=== PATIENT | male | born 1930 | race Caucasian/White ===

== ENCOUNTER → 2018-10-08 | Outpatient (CLI) | payer MEDICARE ==
[~2018-10-08] MED LIST: IOPAMIDOL 370 MG/ML 200 ML INFUS..BTL INJ ONE; SODIUM CHLORIDE 0.9% 100 ML 100 ML ONE; SODIUM CHLORIDE 0.9% 500ML 500 ML ONE
[2018-10-08 15:18] LABS: CREATININE, SERUM 1.21 mg/dL (0.72-1.25)
--- NOTE | 2018-10-08 16:52 | Diagnostic Imaging Report ---
ADDENDUM #1 Technique: Images were reviewed in multiplanar and 3-dimensional format. I have reviewed the images and agree with findings in the preliminary report. Signed by: Dr. Kaila Bryant M.D. on 10/08/2018 9:52 PM ORIGINAL REPORT Exam: Neck CTA History: Carotid stenosis Comparison studies:None Technique: Axial images were obtained from the thoracic inlet. Coronal and sagittal images reconstructed from the axial data. Dose modulation, iterative reconstruction, and/or weight based adjustment of the mA/kV was utilized to reduce the radiation dose to as low as reasonably achievable. Intravenous contrast: 100 cc of Isovue-370. Findings: Aortic arch and major vessels: Patent. Minimal nonstenotic calcified atherosclerosis. Common carotid arteries: Patent no abnormalities. Right internal carotid artery: Eccentric calcific atheromatous plaques in the proximal right ICA without significant stenosis. Left internal carotid artery: Near-total occlusion of the left ICA approximately 1 cm superior from the bifurcation (99% stenosis) best visualized on sagittal series 300, image 129; axial series 301, image 191. Right vertebral artery: Patent. No abnormalities. Left vertebral artery: Patent. No abnormalities. Visualized intracranial arteries: Diminutive posterior communicating arteries. Anterior communicating artery is present and patent. Atherosclerosis in the carotid siphons results in likely mild (less than 50%) bilateral ICA stenosis. There is mild focal atherosclerotic narrowing of the left V4 vertebral artery. There is focal narrowing of the right P1 segment likely due to atherosclerosis (series 301, image 277). Multifocal narrowing of the left P2 segment. Osseous structures: Advanced multilevel disc space loss in the cervical spine from C3-4 through C7-T1 with prominent calcified disc bulge at C4-5 resulting in canal stenosis. IMPRESSION: 1. Near total occlusion of the proximal left ICA (99% stenosis) due to noncalcified plaque. 2. Mild eccentric calcified atheromatous plaques in the right ICA without significant stenosis. 3. Multifocal intracranial arterial narrowing of the visualized arteries, mostly in the posterior circulation, likely due to atheromatous plaques. Signed by: Blake Barth MD on 10/08/2018 4:49 PM
== END ==
LOC: CT 14:13
PROVIDERS: ATTEND Internal Medicine Cardiovascular Disease
DX: I65.22 Occlusion and stenosis of left carotid artery (principal)
CPT/HCPCS: 36415; 70498; 82565; 84520; 96360; J7040; Q9967

== ENCOUNTER 2018-10-15 10:15 | Inpatient (IN) | payer MEDICARE ==
[2018-10-12 11:26] LABS: BASOPHILS % 0.3 % (0.0-1.0); EOSINOPHILS # (AUTO) 0.1 (0.0-0.4); EOSINOPHILS % 2.2 % (0.0-6.0); HEMATOCRIT 44.2 % (38.2-49.6); HEMOGLOBIN 15.5 g/dL (14.0-18.0); LYMPHOCYTES # (AUTO) 1.1 (1.0-3.2); LYMPHOCYTES % 17.3 % (18.0-39.1); MEAN CORPUSCULAR HEMOGLOBIN 32.4 pg (28-32); MEAN CORPUSCULAR HGB CONC 35.1 g/dL (31-35); MEAN CORPUSCULAR VOLUME 92.5 fL (81-99); MONOCYTES # (AUTO) 0.7 (0.2-0.8); MONOCYTES % 11.9 % (4.4-11.3); NEUTROPHILS # (AUTO) 4.2 (2.1-6.9); NEUTROPHILS % 67.7 % (38.7-80.0); PLATELET COUNT 211 x10e3/uL (140-360); RED BLOOD COUNT 4.78 x10e6/uL (4.3-5.7); RED CELL DISTRIBUTION WIDTH 13.2 % (11.7-14.4)
[2018-10-12 11:41] LABS: INR 0.97; PROTHROMBIN TIME 13.4 seconds (11.9-14.5)
[2018-10-12 11:42] LABS: PARTIAL THROMBOPLASTIN TIME 27.1 seconds (23.8-35.5)
[2018-10-12 11:46] LABS: ANION GAP 12.9 mmol/L (8-16); CALCIUM 9.3 mg/dL (8.4-10.2); CREATININE, SERUM 1.15 mg/dL (0.72-1.25); POTASSIUM 3.9 mmol/L (3.5-5.1)
--- NOTE | 2018-10-12 12:07 | Diagnostic Imaging Report ---
EXAMINATION: CHEST 2 VIEWS INDICATION: Preop for surgery. Carotid stenosis. ^PRE ADMIT ^[id number] ^1127 COMPARISON: None FINDINGS: TUBES and LINES: None. LUNGS: Lungs are well inflated. Lungs are clear. There is no evidence of pneumonia or pulmonary edema. PLEURA: No pleural effusion or pneumothorax. HEART AND MEDIASTINUM: The cardiomediastinal silhouette is unremarkable. BONES AND SOFT TISSUES: No acute osseous lesion. Soft tissues are unremarkable. UPPER ABDOMEN: No free air under the diaphragm. IMPRESSION: No acute thoracic abnormality. Signed by: Dr. Fawad Johnson M.D. on 10/12/2018 12:04 PM
[2018-10-15] VITALS (10 sets, daily range): BP systolic 105–166; BP diastolic 54–85
[~2018-10-15] VITALS: Ht 167.6 cm; Wt 79.0 kg
[~2018-10-15 10:15] MED LIST changes: +ALFUZOSIN HCL10 MG; +BACITRACIN ZINC 15 GM OINT ONE; +DIOVAN160 MG PO; +FENOFIBRATE134 MG; +HEPARIN SOD (PORCINE) 1000 UNIT/ML 30ML ONE; -IOPAMIDOL 370 MG/ML 200 ML INFUS..BTL INJ ONE; +LIDOCAINE HCL 1% 2 ML AMP ONE; +PROTAMINE SULFATE 10 MG/ML 5 ML VIAL ONE; -SODIUM CHLORIDE 0.9% 100 ML 100 ML ONE; +THROMBIN FOR SOLN 5,000 UNIT VIAL ONE; +WELCHOL625 MG PO; +XARELTO20 MG
--- OUTSIDE RECORDS SUMMARY | 2018-10-15 10:17 | XMS REPORT ---
Author Author [facility] Address Unknown Phone Unavailable Care Team Providers Care Bone Crusher Name Role Phone IFEOMA KIDD Unavailable Unavailable HEENA REYEZ Unavailable Unavailable Payers Payer Name Policy Type Policy Number Effective Date Expiration Date Problems This patient has no known problems. Allergies, Adverse Reactions, Alerts Allergy Name Allergy Type Status Severity Reaction(s) Onset Date Inactive Date Treating Clinician Comments No Known Allergies DA Active U 2018-04-21 00:00:00 No Known Allergies DA Active U 2011-10-14 00:00:00 Medications This patient has no known medications. Results Test Description Test Time Test Comments Text Results Atomic Results Result Comments CHEST 2 VIEWS 2018-10-12 12:03:00 [place] [id number] Patient Name: FRED GRIJALVA MR #: [id number] : 1930 Age/Sex: 88/M Req #: [id number] Adm Physician: Ordered by: IFEOMA KIDD MD Report #: [id number] Location: OR Room/Bed: Procedure: [id number] DX/CHEST 2 VIEWS Exam Date: 10/12/18 Exam Time: 1126 REPORT STATUS: Signed EXAMINATION: CHEST 2 VIEWS INDICATION: Preop f or surgery. Carotid stenosis. PRE ADMIT [id number] COMPARISON: None FINDINGS: TUBES and LINES: None. LUNGS: Lungs are well inflated. Lungs are clear. There is no evidence of pneumonia or pulmonary edema. PLEURA: No pleural effusion or pneumothorax. HEART AND MEDIASTINUM: The cardiomediastinal silhouette is unremarkable. BONES AND SOFT TISSUES: No acute osseous lesion. Soft tissues are unremarkable. UPPER ABDOMEN: No free air under the diaphragm. IMPRESSION: No acute thoracic abnormality. Signed by: Dr. Fawad Johnson M.D. on 10/12/2018 12:04 PM Dictated By: FAWAD JOHNSON MD, MD 03 Transcribed By: AMNA on 10/12/18 120 COPY TO: IFEOMA KIDD MD CTA NECK 2018-10-08 16:36:00 [place] [address] Patient Name: FRED GRIJALVA MR #: [id number] : 1930 Age/Sex: 88/M Req #: [id number] Adm Physician: Ordered by: HEENA REYEZ MD Report #: [id number] Location: CT Room/Bed: Procedure: [id number] CT/CTA NECK Exam Date: 10/08/18 Exam Time: 1599 REPORT STATUS: Signed ADDENDUM #1 Technique: Images were reviewe d in multiplanar and 3-dimensional format. I have reviewed the images and agree with findings in the preliminary report. Signed by: Dr. Kaila Bryant M.D. on 10/08/2018 9:52 PM ORIGINAL REPORT Exam: Neck CTA History: Carotid stenosis Comparison studies:None Technique: Axial images were obtained from the thoracic inlet. Coronal and sagittal images reconstructed from the axial data. Dose modulation, iterative reconstruction, and/or weight based adjustment of the mA/kV was utilized to reduce the radiation dose to as low as reasonably achievable. Intravenous contrast: 100 cc of Isovue-370. Findings: Aortic arch and major vessels: Patent. Minimal nonstenotic calcified atherosclerosis. Common carotid arteries: Patent no abnormalities. Right internal carotid artery: Eccentric calcific atheromatous plaques in the proximal right ICA without significant stenosis. Left internal carotid artery: Near-total occlusion of the left ICA approximately 1 cm superior from the bifurcation (99% stenosis) best visualized on sagittal series 300, image 129; axial series 301, image 191. Right vertebral artery: Patent. No abnormalities. Left vertebral artery: Patent. No abnormalities. Visualized intracranial arteries: Diminutive posterior communicating arteries. Anterior communicating artery is present and patent. Atherosclerosis in the carotid siphons results in likely mild (less than 50%) bilateral ICA stenosis. There is mild focal atherosclerotic narrowing of the left V4 vertebral artery. There is focal narrowing of the right P1 segment likely due to atherosclerosis (series 301, image 277). Multifocal narrowing of the left P2 segment. Osseous structures: Advanced multilevel disc space loss in the cervical spine from C3- 4 through C7-T1 with prominent calcified disc bulge at C4-5 resulting in canal stenosis. IMPRESSION: 1. Near total occlusion of the proximal left ICA (99% stenosis) due to noncalcified plaque. 2. Mild eccentric calcified atheromatous plaques in the right ICA without significant stenosis. 3. Multifocal intracranial arterial narrowing of the visualized arteries, mostly in the posterior circulation, likely due to atheromatous plaques. Signed by: Blake Barth MD on 10/08/2018 4:49 PM Dictated By: AIMEE BARTH MD [id number] Transcribed By: AMNA on 10/08/18 5921 COPY TO: HEENA REYEZ MD
[2018-10-15] MEDS ORDERED: HEPARIN SOD/SOD CHLORIDE 1,000 ML ONE (11:23)
[2018-10-15] MEDS ORDERED: DEXMEDETOMIDINE HCL 2 ML ONE (19:05)
--- NOTE | 2018-10-15 19:10 | NUR ---
Report received. To OR.
[2018-10-15] MEDS ORDERED: NOREPINEPHRINE INJ 4 MG/4 ML ONE (20:24)
[2018-10-15] MEDS ORDERED: NICARDIPINE HCL 25 MG/10 ML ONE (20:24)
[2018-10-15] MEDS ORDERED: SODIUM CHLORIDE 0.9% INJ 100 ML MINIBAG PLUS ONE (20:24)
[2018-10-15] MEDS ORDERED: MUPIROCIN 2% OINT 22 GM TUBE ONE (21:27)
--- NOTE | 2018-10-15 21:44 | NUR ---
Received from OR. Placed on NBP, pulse ox & EKG for monitoring. Art line in place to right radial. Zeroed.
[2018-10-15] MEDS ORDERED: ONDANSETRON HCL 4 MG ORAL DISINTEGRATING TAB PO PRN (22:45)
[2018-10-15] MEDS ORDERED: LABETALOL HCL 5 MG/ML 20ML VIAL IV PRN (22:45)
[2018-10-15] MEDS ORDERED: HYDROCODONE/APAP 5MG-325MG TAB PO PRN (22:45)
[2018-10-15] MEDS ORDERED: CEFAZOLIN SOD 1 GM/NS 50ML 50 ML IV SCH (22:45)
[2018-10-15] MEDS ORDERED: MORPHINE SULFATE INJ 4 MG/ML INJ 1ML IV PRN (22:45)
[2018-10-15] MEDS: ENOXAPARIN SOD INJ 40 MG/0.4 ML SYR SC SCH (23:06)
[2018-10-15] MEDS ORDERED: MORPHINE SULFATE INJ 4 MG/ML INJ 1ML ONE (23:10)
[2018-10-15 23:24] LABS: BASOPHILS % 0.3 % (0.0-1.0); EOSINOPHILS # (AUTO) 0.1 (0.0-0.4); EOSINOPHILS % 0.3 % (0.0-6.0); HEMATOCRIT 40.4 % (38.2-49.6); HEMOGLOBIN 14.4 g/dL (14.0-18.0); LYMPHOCYTES # (AUTO) 0.5 (1.0-3.2); LYMPHOCYTES % 3.7 % (18.0-39.1); MEAN CORPUSCULAR HEMOGLOBIN 32.8 pg (28-32); MEAN CORPUSCULAR HGB CONC 35.6 g/dL (31-35); MONOCYTES # (AUTO) 0.4 (0.2-0.8); MONOCYTES % 2.7 % (4.4-11.3); NEUTROPHILS # (AUTO) 13.3 (2.1-6.9); NEUTROPHILS % 92.2 % (38.7-80.0); PLATELET COUNT 225 x10e3/uL (140-360); RED BLOOD COUNT 4.39 x10e6/uL (4.3-5.7); RED CELL DISTRIBUTION WIDTH 13.1 % (11.7-14.4)
--- NOTE | 2018-10-15 23:24 | Consultation ---
DATE OF CONSULTATION: Critical Care Consultation. CHIEF COMPLAINT: Carotid atherosclerosis. REFERRING PHYSICIAN: Juan Alberto Davies MD. HISTORY OF PRESENT ILLNESS: The patient is an 88-year-old man. He has a history of hypertension and atrial fibrillation. He recently had carotid vascular studies that showed carotid artery stenosis. He is awaiting a carotid endarterectomy. PAST MEDICAL HISTORY: 1. Hypertension. 2. Atrial fibrillation. 3. Coronary artery disease. PAST SURGERY HISTORY: 1. Cholecystectomy. 2. Left carotid endarterectomy. 3. Cardiac catheterization. SOCIAL HISTORY: The patient is not an active smoker or drinker. FAMILY HISTORY: Family history is noncontributory. ALLERGIES: THE PATIENT IS ALLERGIC TO IODINE. REVIEW OF SYSTEMS: There are no fevers. No headache. No neck pain. He does not have chest pain. There is no difficulty breathing. He has no nausea or vomiting. He has no abdominal pain. He has no leg swelling. PHYSICAL EXAMINATION: VITAL SIGNS: The patient is afebrile. The vital signs are stable. HEENT: Shows no facial swelling or erythema. CARDIAC: Reveals regular rate and rhythm with normal S1, S2. LUNGS: Auscultation of lungs reveals clear breath sounds bilaterally. There is no wheezing. ABDOMEN: Soft, nontender. There is no rebound or guarding. EXTREMITIES: Show no leg edema or calf tenderness. There is no cyanosis or clubbing. SKIN: Shows no rashes. NEUROLOGICAL: Shows no focal abnormalities. IMPRESSION: 1. Carotid artery disease. 2. Atrial fibrillation. 3. Hypertension. 4. Coronary artery disease. PLAN: 1. The patient is awaiting right carotid endarterectomy. 2. Resume antihypertensive regimen and medications for atrial fibrillation postoperatively. Rodrigo Ba MD [facility]/MODL /[id number]
[2018-10-15 23:44] LABS: ANION GAP 13.8 mmol/L (8-16); BLOOD UREA NITROGEN 13 mg/dL (7-26); BUN/CREATININE RATIO 12 (6-25); CALCIUM 8.3 mg/dL (8.4-10.2); CARBON DIOXIDE 20 mmol/L (22-29); CHLORIDE 101 mmol/L (98-107); CREATININE, SERUM 1.11 mg/dL (0.72-1.25); EST GLOMERULAR FILTRATION RATE > 60 ML/MIN (60-); GLUCOSE 159 mg/dL (74-118); POTASSIUM 4.8 mmol/L (3.5-5.1); SODIUM 130 mmol/L (136-145)
[2018-10-16] VITALS (26 sets, daily range): BP systolic 101–181; BP diastolic 53–99
[2018-10-16] MEDS: SODIUM CHLORIDE 0.9% 1000ML 1,000 ML IV SCH ×2 (00:56→08:35)
[2018-10-16] MEDS ORDERED: CEFAZOLIN SOD 1 GM/NS 50ML 50 ML IV ONE (03:27)
[2018-10-16 05:28] LABS: BASOPHILS % 0.2 % (0.0-1.0); HEMATOCRIT 40.1 % (38.2-49.6); HEMOGLOBIN 14.2 g/dL (14.0-18.0); LYMPHOCYTES # (AUTO) 0.5 (1.0-3.2); LYMPHOCYTES % 3.8 % (18.0-39.1); MEAN CORPUSCULAR HEMOGLOBIN 32.6 pg (28-32); MEAN CORPUSCULAR HGB CONC 35.4 g/dL (31-35); MONOCYTES # (AUTO) 0.6 (0.2-0.8); MONOCYTES % 4.1 % (4.4-11.3); NEUTROPHILS # (AUTO) 12.2 (2.1-6.9); NEUTROPHILS % 91.4 % (38.7-80.0); PLATELET COUNT 222 x10e3/uL (140-360); RED BLOOD COUNT 4.36 x10e6/uL (4.3-5.7); RED CELL DISTRIBUTION WIDTH 12.8 % (11.7-14.4)
[2018-10-16 05:36] LABS: ANION GAP 13.4 mmol/L (8-16); BLOOD UREA NITROGEN 13 mg/dL (7-26); BUN/CREATININE RATIO 12 (6-25); CALCIUM 8.3 mg/dL (8.4-10.2); CARBON DIOXIDE 20 mmol/L (22-29); CHLORIDE 99 mmol/L (98-107); CREATININE, SERUM 1.11 mg/dL (0.72-1.25); EST GLOMERULAR FILTRATION RATE > 60 ML/MIN (60-); GLUCOSE 151 mg/dL (74-118); POTASSIUM 4.4 mmol/L (3.5-5.1); SODIUM 128 mmol/L (136-145)
--- NOTE | 2018-10-16 05:42 | Diagnostic Imaging Report ---
Examination: Single AP view of the chest. COMPARISON: None. INDICATION: Postoperative, carotid stenosis DISCUSSION: Lines/tubes: None. Lungs: The lungs are well inflated and clear. No pneumonia or pulmonary edema. Pleura: No pleural effusion or pneumothorax. Heart and mediastinum: Cardiomegaly Bones and soft tissues: No acute bony abnormalities. IMPRESSION: Cardiomegaly without decompensation Signed by: Dr. Antonio Chairez M.D. on 10/16/2018 5:38 AM
[2018-10-16] MEDS ORDERED: CHLORASEPTIC SPRAY 177 ML BTL MM PRN (08:15)
--- NOTE | 2018-10-16 09:17 | Consultation ---
DATE OF CONSULTATION: CHIEF COMPLAINT: The patient is 88-year-old with atrial fibrillation. HISTORY OF PRESENT ILLNESS: The patient is an 88-year-old with chronic atrial fibrillation, who underwent a redo left carotid endarterectomy yesterday without complication. The patient has had no chest pain. No shortness of breath. No dizziness. PAST MEDICAL HISTORY: Significant for: 1. Chronic atrial fibrillation. 2. Carotid artery disease. 3. Hyperlipidemia. 4. Hypertension. MEDICATIONS: At home include; Xarelto, Diovan, and fenofibrate. SOCIAL HISTORY: The patient does not smoke. Does not drink. The patient reports quitting smoking in the 80s. FAMILY HISTORY: Heart disease and diabetes. PHYSICAL EXAMINATION: GENERAL: The patient is a well-developed and well-nourished male in no obvious distress. VITAL SIGNS: Include temperature of 97.3, blood pressure 140/75, and pulse of 80. HEAD, EARS, EYES, NOSE, AND THROAT: The patient had a recent left-sided carotid endarterectomy. CARDIAC: Demonstrated normal S1 and S2 with an irregularly irregular rhythm. CHEST: Demonstrated rhonchi bilaterally. ABDOMEN: Demonstrated good bowel sounds. No tenderness and no masses. EXTREMITIES: There is no clubbing, no cyanosis, no edema. NEUROLOGICAL: The patient is alert and oriented x3. Cranial nerves were intact. Motor strength was intact in all limbs. LABORATORY DATA: The patient's EKG demonstrated atrial fibrillation with nonspecific ST and T-wave changes. IMPRESSION: The patient is 88-year-old with a recent carotid endarterectomy. The patient is recovering without complication. The patient has chronic atrial fibrillation with a ventricular response. The atrial fibrillation is well controlled. The patient will need to resume Xarelto as soon as it is approved by Cardiovascular Surgery. MD WILD Rowland/ANDRES /[id number]
[2018-10-16] MEDS: FENOFIBRATE 145 MG TAB PO SCH (09:55)
[2018-10-16] MEDS: VALSARTAN 160 MG TAB PO SCH ×2 (09:55→17:08)
[2018-10-16] MEDS: ENOXAPARIN SOD INJ 40 MG/0.4 ML SYR SC SCH (09:55)
[2018-10-16] MEDS: COLESEVELAM HCL 625 MG TAB PO SCH (09:55)
--- NOTE | 2018-10-16 14:57 | NUR ---
JULIEN DIOP'Brittni AT THIS TIME Addendum: 10/16/18 at 1458 by Lissy Moore RN PT SITTING UP AT BEDSIDE IN CHAIR
--- NOTE | 2018-10-16 16:44 | Progress Note ---
DATE: Pulmonary Critical Care Progress Note SUBJECTIVE: The patient went for carotid endarterectomy late last night. The patient tolerated the procedure well without any problems. This morning, he has no headache. He has no neurological abnormalities. PHYSICAL EXAMINATION: VITAL SIGNS: The patient is afebrile. The blood pressure is 132/61 and saturation is 97% on room air. The pulse is 68. HEENT: Shows no facial swelling or erythema. The nasal mucosa is normal. The oropharynx is normal. LYMPHATIC: Shows no submandibular, cervical, or supraclavicular adenopathy. CARDIAC: Reveals regular rate and rhythm with normal S1, S2. There are no murmurs or rubs. LUNGS: Auscultation of lungs shows clear breath sounds bilaterally. There is no wheezing. ABDOMEN: Soft, nontender. There is no rebound or guarding. EXTREMITIES: Show no leg edema or calf tenderness. There is no cyanosis or clubbing. LABORATORY DATA: White blood cell count is 13.3 and hemoglobin is 14.2. The platelet count is 222. The sodium is 128 and BUN to creatinine ratio is 13 to 1.11. Other electrolytes are within normal limits. IMPRESSION: 1. Status post carotid endarterectomy. 2. Hypertension. 3. Chronic atrial fibrillation. PLAN: 1. Discontinue Aleman catheter. 2. Remove venous compression devices and ambulate patient as tolerated. 3. Tentative discharge home tomorrow. Rodrigo Ba MD [facility]/MODL /[id number]
[2018-10-16] MEDS ORDERED: FENTANYL CITRATE/PF 100MCG/2 ML INJ ONE (19:23)
[2018-10-16] MEDS ORDERED: MIDAZOLAM HCL 2 MG/2 ML VIAL ONE (19:23)
[2018-10-16] MEDS ORDERED: DEXAMETHASONE SOD PHOS INJ 4 MG/ML VIAL ONE (20:07)
[2018-10-16] MEDS ORDERED: ONDANSETRON HCL INJ 2MG/ML 2ML 2 MG/ML VIAL ONE (20:07)
[2018-10-16] MEDS ORDERED: VASOPRESSIN INJ 20 UNIT/ML VIAL ONE (20:07)
[2018-10-16] MEDS ORDERED: CEFAZOLIN SOD 1 GM VIAL ONE (20:07)
[2018-10-16] MEDS ORDERED: NEOSTIGMINE 5 MG/5ML SYR ONE (20:07)
[2018-10-16] MEDS ORDERED: GLYCOPYRROLATE INJ 1MG/ 5 ML SYR ONE (20:07)
[2018-10-16] MEDS ORDERED: ESMOLOL HCL 100MG/10ML 10 MG/ML VIAL ONE (20:07)
[2018-10-16] MEDS ORDERED: ACETAMINOPHEN 1000 MG/100 ML IV ONE (20:07)
[2018-10-16] MEDS ORDERED: DESFLURANE 240 ML BTL INH ONE (20:07)
[2018-10-16] MEDS ORDERED: PROPOFOL IV EMULSION 10 MG/ML 20 ML VIAL ONE (20:07)
[2018-10-16] MEDS ORDERED: ROCURONIUM BROMIDE 10 MG/ML 5ML VIAL ONE (20:07)
--- NOTE | 2018-10-16 23:00 | NUR ---
Patient had his Aleman catheter removed at around 1400hrs, has been passing urine just fine, states that he usually has frequency in the evening but and retention at times, did a bladder scan 580 mls of urine. Called Dr Ba about the retention
--- NOTE | 2018-10-16 23:40 | NUR ---
Obtained an order for a straight catheter done, 900 mls of urine. Patient relieved and reassured.
[2018-10-17] VITALS (9 sets, daily range): BP systolic 89–158; BP diastolic 48–102
--- NOTE | 2018-10-17 03:18 | NUR ---
Dr Ba, updated on the patients progress, for review before discharge. Patient remains asleep with no complaints, hemodynamically stable
--- NOTE | 2018-10-17 06:14 | Diagnostic Imaging Report ---
Examination: Single AP view of the chest. COMPARISON: October 16, 2018 INDICATION: Postoperative, carotid stenosis DISCUSSION: Lines/tubes: None. Lungs: The lungs are well inflated and clear. No pneumonia or pulmonary edema. Pleura: No pleural effusion or pneumothorax. Heart and mediastinum: Cardiomegaly Bones and soft tissues: No acute bony abnormalities. IMPRESSION: Cardiomegaly without decompensation Signed by: Dr. Antonio Chairez M.D. on 10/17/2018 6:11 AM
[2018-10-17] MEDS ORDERED: TAMSULOSIN HCL 0.4 MG CAP PO SCH ×3 (07:00→21:00)
[2018-10-17] MEDS ORDERED: TAMSULOSIN HCL 0.4 MG CAP PO ONE (07:30)
[2018-10-17] MEDS: VALSARTAN 160 MG TAB PO SCH (09:09)
[2018-10-17] MEDS: COLESEVELAM HCL 625 MG TAB PO SCH (09:09)
[2018-10-17] MEDS: FENOFIBRATE 145 MG TAB PO SCH (09:09)
--- NOTE | 2018-10-17 13:00 | NUR ---
Dr Fisher notified of consult. [address] and 200cc clear yellow urine removed. patient to discharge with pacheco in place and follow up with Dr Fisher after discharge.
[2018-10-17] MEDS ORDERED: TYLENOL WITH C1 EACH PO (13:09)
[2018-10-17] MEDS ORDERED: RIVAROXABAN 20 MG TABLET PO SCH (17:00)
--- NOTE | 2018-10-25 04:38 | Operative Report ---
DATE OF PROCEDURE: 10/15/2018 SURGEON: Juan Alberto Davies MD PRIMER BOXER: Ganga Alba. PREOPERATIVE DIAGNOSIS: Severe and recurrent left carotid stenosis. POSTOPERATIVE DIAGNOSIS: Severe and recurrent left carotid stenosis. TITLE OF OPERATION: Redo left carotid endarterectomy. DESCRIPTION OF PROCEDURE: After the satisfactory accomplishment of general anesthesia, the patient's left neck was prepped and draped in sterile fashion. The old left carotid incision was reopened and carried down through the dense scar tissue and adhesions to expose the old patch and the left common carotid artery. The artery and its patch were carefully dissected free from the surrounding tissues and looped with vessel loops. The dissection was carefully carried distally to expose the internal carotid artery and the external carotid artery and its branches. Care was taken to identify and preserve all nerve structures in the region. Systemic heparin was then given through a central vein canula for the purposes of anticoagulation. The common, external, and internal carotid arteries were briefly crossclamped. A long incision was started in the common carotid artery proximal to the patch and carried through the patch and well up into the distal internal carotid artery. An indwelling shunt was placed in the common carotid artery proximally and the internal carotid artery distally, thereby re-establishing blood flow to the left side of the brain for the remainder of the case. A severely obstructing atherosclerotic plaque was found in the distal portion of the patch and in the carotid bifurcation. All of this material was removed along with the remnants of the old Dacron patch. Once the endarterectomy part of the operation was completed, the surface of the vessel was smoothed and all loose debris was carefully removed. Heparinized saline flushes were routinely employed. A new Dacron patch was brought into the operative field. This patch was anastomosed over the extended arteriotomy incision. This patch closure was performed using running 7-0 Prolene. Prior to completing, the closure of the shunt was removed and the vessel was flushed free from all air and debris. Once the sutures were tied, excellent pulses were located within the patch area and beyond. Protamine was given to counteract the effects of the heparin. All bleeding points were cauterized, ligated, and oversewn. Once the wound had been re-irrigated with antibiotic solution, the wound was closed in layers with interrupted 2-0 Vicryl for the deep tissues and Monocryl subcuticular stitches for the skin. The patient tolerated the procedure well and was returned to the Intensive Care Unit in good condition. MD JAMES Lucas/ANDRES /[id number]
== END 2018-10-17 14:45 | disposition home or self-care (01) | DRG 39 ==
LOC: OR 10:15 → PACU V 15:15 → ICU 15:41 → OBSVTOIN 10-16 11:13
PROVIDERS: ADMIT Thoracic Surgery (Cardiothoracic Vascular Surgery); ATTEND Thoracic Surgery (Cardiothoracic Vascular Surgery)
PROC: 03CJ0Z6 (ICD-10-PCS; principal; 2018-10-16)
PROC: 03CL0ZZ Extirpation of Matter from Left Internal Carotid Artery, Open Approach (ICD-10-PCS; 2018-10-16)
PROC: 03UJ0JZ Supplement Left Common Carotid Artery with Synthetic Substitute, Open Approach (ICD-10-PCS; 2018-10-16)
DX: I65.22 Occlusion and stenosis of left carotid artery (principal); I48.2 Chronic atrial fibrillation; Z79.01 Long term (current) use of anticoagulants; I10 Essential (primary) hypertension; K57.90 Diverticulosis of intestine, part unspecified, without perforation or abscess without bleeding; K21.9 Gastro-esophageal reflux disease without esophagitis; Z72.0 Tobacco use; Z91.041 Radiographic dye allergy status; I25.10 Atherosclerotic heart disease of native coronary artery without angina pectoris; N40.1 Benign prostatic hyperplasia with lower urinary tract symptoms; R33.8 Other retention of urine; E66.9 Obesity, unspecified; Z68.28 Body mass index [BMI] 28.0-28.9, adult
CPT/HCPCS: 36415; 71045; 71046; 80048; 85025; 85610; 85730; 86850; 86900; 86920; 88304; 88311; 93005; C1768; G0378; J0690; J1100; J1644; J1650; J2001; J2250; J2270; J2405; J2720; J7030; J7040

== ENCOUNTER 2018-10-24 16:18 | Emergency (ER) | payer MEDICARE ==
[~2018-10-24] VITALS: Ht 167.6 cm; Wt 78.9 kg
[~2018-10-24 16:18] MED LIST changes: -BACITRACIN ZINC 15 GM OINT ONE; -HEPARIN SOD (PORCINE) 1000 UNIT/ML 30ML ONE; -LIDOCAINE HCL 1% 2 ML AMP ONE; -PROTAMINE SULFATE 10 MG/ML 5 ML VIAL ONE; -SODIUM CHLORIDE 0.9% 500ML 500 ML ONE; -THROMBIN FOR SOLN 5,000 UNIT VIAL ONE; +TYLENOL WITH C1 EACH PO
[2018-10-24 17:45] LABS: BILIRUBIN,URINE NEGATIVE (NEGATIVE); CLARITY,URINE CLEAR (CLEAR); COLOR,URINE YELLOW (YELLOW); KETONES,URINE NEGATIVE (NEGATIVE); LEUKOCYTE ESTERASE ,URINE MODERATE (NEGATIVE); NITRITE,URINE NEGATIVE (NEGATIVE); PROTEIN,URINE DIPSTICK NEGATIVE (NEGATIVE); URINE UROBILINOGEN 0.2 mg/dL (0.2 - 1)
[2018-10-24 18:00] LABS: BACTERIA,URINE MODERATE /HPF
[2018-10-24] MEDS ORDERED: ceftin PO (18:17)
--- NOTE | 2018-10-24 18:29 | NUR ---
PER DR GAVIN INSERT 18 FR COUDE WITH LEG BAG FOR URINARY RETENTION; BLADDER SCANNER SHOWS APPROX 275 CC URINE RETENTION POST VOID IN DIAPER; POST CATHETER INSERTION PT HAS APPROX 220 CC URINE OUTPUT
[2018-10-24 18:33] VITALS: BP 165/97
== END 2018-10-24 18:37 | disposition home or self-care (01) ==
LOC: ER 16:18
DX: R33.9 Retention of urine, unspecified (principal); N30.91 Cystitis, unspecified with hematuria; N40.1 Benign prostatic hyperplasia with lower urinary tract symptoms
CPT/HCPCS: 51700; 81001; 87086; 87186; 99283

== ENCOUNTER 2018-11-10 01:38 | Emergency (ER) | payer MEDICARE ==
[~2018-11-10] VITALS: Ht 167.6 cm; Wt 78.9 kg
[~2018-11-10 01:38] MED LIST changes: +ceftin PO
[2018-11-10] MEDS ORDERED: LIDOCAINE JELLY 2% 10ML URO-JET TOP ONE (01:45)
[2018-11-10 02:19] LABS: CLARITY,URINE CLEAR (CLEAR); COLOR,URINE YELLOW (YELLOW)
[2018-11-10 02:20] LABS: BILIRUBIN,URINE NEGATIVE (NEGATIVE); KETONES,URINE NEGATIVE (NEGATIVE); LEUKOCYTE ESTERASE ,URINE NEGATIVE (NEGATIVE); NITRITE,URINE NEGATIVE (NEGATIVE); PROTEIN,URINE DIPSTICK NEGATIVE (NEGATIVE); URINE UROBILINOGEN 0.2 mg/dL (0.2 - 1)
[2018-11-10 02:55] LABS: BACTERIA,URINE FEW /HPF; EPITHELIAL CELLS,URINE FEW /LPF
== END 2018-11-10 02:56 | disposition home or self-care (01) ==
LOC: ER 01:38
DX: N40.1 Benign prostatic hyperplasia with lower urinary tract symptoms (principal); R33.8 Other retention of urine; Z91.041 Radiographic dye allergy status
CPT/HCPCS: 51700; 81001; 87086; 99283

== ENCOUNTER 2018-11-28 06:58 | Inpatient (IN) | payer MEDICARE ==
[2018-11-26 11:13] LABS: BASOPHILS % 0.4 % (0.0-1.0); EOSINOPHILS # (AUTO) 0.1 (0.0-0.4); EOSINOPHILS % 1.7 % (0.0-6.0); HEMATOCRIT 45.7 % (38.2-49.6); HEMOGLOBIN 16.1 g/dL (14.0-18.0); LYMPHOCYTES # (AUTO) 1.5 (1.0-3.2); LYMPHOCYTES % 21.2 % (18.0-39.1); MEAN CORPUSCULAR HEMOGLOBIN 32.3 pg (28-32); MEAN CORPUSCULAR HGB CONC 35.2 g/dL (31-35); MEAN CORPUSCULAR VOLUME 91.6 fL (81-99); MONOCYTES # (AUTO) 0.8 (0.2-0.8); MONOCYTES % 10.4 % (4.4-11.3); NEUTROPHILS # (AUTO) 4.8 (2.1-6.9); NEUTROPHILS % 65.9 % (38.7-80.0); PLATELET COUNT 255 x10e3/uL (140-360); RED BLOOD COUNT 4.99 x10e6/uL (4.3-5.7); RED CELL DISTRIBUTION WIDTH 13.1 % (11.7-14.4)
[~2018-11-28] VITALS: Ht 167.6 cm; Wt 68.5 kg
[2018-11-28] MEDS ORDERED: CEFTRIAXONE SOD 1 GM/NS 50 ML 50 ML IV ONE (07:12)
[2018-11-28] MEDS ORDERED: GENTAMICIN 80MG/NS 100 ML 100 ML IV ONE (07:12)
[2018-11-28] MEDS ORDERED: AMPICILLIN SOD 1 GM/NS 50ML 50 ML IV PRN (07:30)
[2018-11-28] MEDS ORDERED: BELLADONNA/OPIUM 30 MG SUPP RC ONE (09:06)
[2018-11-28] MEDS ORDERED: IOPAMIDOL 610MG/1ML 300 MG/ML VIAL IV ONE (09:06)
[2018-11-28] MEDS ORDERED: FENTANYL CITRATE/PF 100MCG/2 ML INJ ONE ×2 (11:41→14:27)
[2018-11-28] MEDS ORDERED: BELLADONNA/OPIUM 30 MG SUPP RC PRN (11:45)
[2018-11-28] MEDS ORDERED: MORPHINE SULFATE INJ 4 MG/ML INJ 1ML ONE ×2 (11:57→12:10)
[2018-11-28] MEDS: CEFTRIAXONE SOD 1 GM/NS 50 ML 50 ML IV SCH (12:00)
[2018-11-28] MEDS ORDERED: HYDROMORPHONE 2MG/ML 2 MG/ML ML ONE (12:14)
[2018-11-28 12:41] LABS: BASOPHILS % 0.2 % (0.0-1.0); EOSINOPHILS # (AUTO) 0.1 (0.0-0.4); EOSINOPHILS % 0.7 % (0.0-6.0); HEMATOCRIT 45.6 % (38.2-49.6); HEMOGLOBIN 15.6 g/dL (14.0-18.0); LYMPHOCYTES # (AUTO) 1.1 (1.0-3.2); LYMPHOCYTES % 12.4 % (18.0-39.1); MEAN CORPUSCULAR HGB CONC 34.2 g/dL (31-35); MEAN CORPUSCULAR VOLUME 93.6 fL (81-99); MONOCYTES # (AUTO) 0.3 (0.2-0.8); MONOCYTES % 3.5 % (4.4-11.3); NEUTROPHILS # (AUTO) 7.2 (2.1-6.9); NEUTROPHILS % 82.7 % (38.7-80.0); PLATELET COUNT 234 x10e3/uL (140-360); RED BLOOD COUNT 4.87 x10e6/uL (4.3-5.7); RED CELL DISTRIBUTION WIDTH 13.2 % (11.7-14.4)
[2018-11-28] MEDS: PHENAZOPYRIDINE HCL 100 MG TAB PO SCH ×2 (13:00→17:39)
[2018-11-28 13:21] LABS: ANION GAP 12.4 mmol/L (8-16); CALCIUM 9.5 mg/dL (8.4-10.2); CREATININE, SERUM 1.19 mg/dL (0.72-1.25); POTASSIUM 4.4 mmol/L (3.5-5.1)
[2018-11-28] MEDS ORDERED: ACETAMINOPHEN/CODEINE 300MG - 30MG TAB ONE (13:46)
--- NOTE | 2018-11-28 14:00 | NUR ---
RECEIVED PATIENT FROM OR. PATIENT A/O X3. EVEN RESPIRATIONS ON RA. BOWEL SOUNDS ACTIVE, SKIN INTACT, NO EDEMA. VICTORIA IN PLACE WITH CBI. CARTER COLOR URINE. VITAL SIGNS STABLE. LUNG SOUNDS CLEAR TO AUSCULTATION. RIGHT FA 20 GAUGE IV WITH IVF @ 125 CC/HR. FAMILY AT BEDSIDE. CALL LIGHT IN REACH. WILL CONTINUE TO MONITOR PATIENT.
[2018-11-28] MEDS ORDERED: SEVOFLURANE INHAL SOLN 250 ML PEN BTL ONE (14:48)
[2018-11-28] MEDS ORDERED: PROPOFOL IV EMULSION 10 MG/ML 20 ML VIAL ONE (14:48)
[2018-11-28] MEDS ORDERED: LIDOCAINE HCL 2% LOCAL INJ 5 ML SDV VIAL INJ ONE (14:48)
[2018-11-28] MEDS ORDERED: ONDANSETRON HCL INJ 2MG/ML 2ML 2 MG/ML VIAL ONE (14:48)
[2018-11-28] MEDS ORDERED: EPHEDRINE SULFATE INJ 50 MG/10 ML SYR ONE (14:48)
[2018-11-28] MEDS ORDERED: DEXAMETHASONE SOD PHOS INJ 4 MG/ML VIAL ONE (14:48)
[2018-11-28] MEDS ORDERED: B&O 60MG R/S 60 MG SUPP PR PRN (15:45)
[2018-11-28 16:05] VITALS: BP 163/80
[2018-11-28 16:07] VITALS: BP 163/80
[2018-11-28] MEDS: D5.45%NS/KCL 20MEQ 1,000 ML IV SCH (17:39)
[2018-11-28] MEDS: DOCUSATE SODIUM 100 MG CAP PO SCH (17:39)
[2018-11-28 20:00] VITALS: BP 187/96
[2018-11-28] MEDS: ACETAMINOPHEN/CODEINE 300MG - 30MG TAB PO PRN (20:29)
--- NOTE | 2018-11-28 21:57 | NUR ---
BP checked and noted 154/92 mmof hg.
[2018-11-28 22:03] VITALS: BP 156/92
--- NOTE | 2018-11-28 23:18 | NUR ---
Assessment done.no resp.distress.catheter given.thomas colored urine draining.scd in place.bed locked and in lowest position.phone and call light within reach.instructed to call for assistance as needed.
[2018-11-29] VITALS (8 sets, daily range): BP systolic 133–177; BP diastolic 63–84
[2018-11-29] MEDS: D5.45%NS/KCL 20MEQ 1,000 ML IV SCH ×4 (00:01→19:43)
[2018-11-29] MEDS: ACETAMINOPHEN/CODEINE 300MG - 30MG TAB PO PRN ×2 (01:56→18:43)
--- NOTE | 2018-11-29 06:00 | NUR ---
Mcclain colored urine draining.no blood clots noted.stable condition.
[2018-11-29 06:07] LABS: BASOPHILS % 0.1 % (0.0-1.0); EOSINOPHILS % 0.2 % (0.0-6.0); HEMATOCRIT 42.5 % (38.2-49.6); HEMOGLOBIN 14.6 g/dL (14.0-18.0); LYMPHOCYTES # (AUTO) 1.7 (1.0-3.2); LYMPHOCYTES % 13.5 % (18.0-39.1); MEAN CORPUSCULAR HEMOGLOBIN 31.8 pg (28-32); MEAN CORPUSCULAR HGB CONC 34.4 g/dL (31-35); MEAN CORPUSCULAR VOLUME 92.6 fL (81-99); MONOCYTES % 7.9 % (4.4-11.3); NEUTROPHILS # (AUTO) 9.9 (2.1-6.9); NEUTROPHILS % 77.8 % (38.7-80.0); PLATELET COUNT 236 x10e3/uL (140-360); RED BLOOD COUNT 4.59 x10e6/uL (4.3-5.7); RED CELL DISTRIBUTION WIDTH 13.1 % (11.7-14.4)
[2018-11-29 06:15] LABS: ANION GAP 11.3 mmol/L (8-16); BLOOD UREA NITROGEN 8 mg/dL (7-26); BUN/CREATININE RATIO 8 (6-25); CALCIUM 8.2 mg/dL (8.4-10.2); CARBON DIOXIDE 25 mmol/L (22-29); CHLORIDE 102 mmol/L (98-107); CREATININE, SERUM 0.98 mg/dL (0.72-1.25); EST GLOMERULAR FILTRATION RATE > 60 ML/MIN (60-); GLUCOSE 131 mg/dL (74-118); POTASSIUM 4.3 mmol/L (3.5-5.1); SODIUM 134 mmol/L (136-145)
--- NOTE | 2018-11-29 06:54 | NUR ---
Bed side shift report given to the oncoming rn.stable condition.
--- NOTE | 2018-11-29 07:16 | NUR ---
RECEIVED PATIENT RESTING IN BED NO S/S OF DISTRESS. BED LOW, WHEELS LOCKED, SIDE RAILS X2. CALL LIGHT IN REACH. WILL CONTINUE TO MONITOR PATIENT.
[2018-11-29] MEDS: DOCUSATE SODIUM 100 MG CAP PO SCH ×2 (08:13→16:10)
[2018-11-29] MEDS: PHENAZOPYRIDINE HCL 100 MG TAB PO SCH ×3 (08:13→17:02)
--- NOTE | 2018-11-29 09:10 | NUR ---
PATIENT A/O X3 EVEN RESPIRATIONS ON RA. BOWEL SOUNDS ACTIVE, SKIN INTACT, NO EDEMA. ANGELY HOSE AND SCD's BILATERALLY. RIGHT FA 20 GAUGE IV WITH IVF @ 125 CC/HR. VICTORIA IN PLACE WITH CBI. URINE STRAW COLOR, NO CLOTS. VITAL SIGNS STABLE. CALL LIGHT IN REACH. WILL CONTINUE TO MONITOR PATIENT.
[2018-11-29] MEDS: CEFTRIAXONE SOD 1 GM/NS 50 ML 50 ML IV SCH (12:56)
[2018-11-29] MEDS ORDERED: ZOLPIDEM TARTRATE 5 MG TAB PO PRN (16:30)
--- NOTE | 2018-11-29 17:59 | History and Physical ---
He is an 88-year-old male patient of Dr. Brittni Rosario, admitted for urinary retention and difficulty with voiding and weakness. HISTORY OF PRESENT ILLNESS: The patient is an 88-year-old male patient, who is admitted with recurrent urinary retention and difficulty with voiding and weakness. The patient is scheduled to have prostate surgery, TURP under cystoscopy and retrograde pyelogram. The patient was admitted after the surgery done by Dr. Fisher. PAST MEDICAL HISTORY: Hypertension, GERD, chronic atrial fibrillation. PAST SURGICAL HISTORY: Tonsillectomy and colon surgery. ALLERGIES: NONE. SOCIAL HISTORY: Denies smoking. Denies using alcohol. REVIEW OF SYSTEMS: As per history of present illness. A detailed 14-point review of system examination done. The patient has insomnia. PHYSICAL EXAMINATION: VITAL SIGNS: Temperature 98, pulse rate 88, respiratory rate 20, blood pressure 110/70. HEENT: Normocephalic, atraumatic. No JVD. No lymphadenopathy. LUNGS: Bilateral equal air entry. No rales, no rhonchi. HEART: S1, S2. Irregular systolic murmur present. ABDOMEN: Soft. Bowel sounds are present. NEUROLOGIC: No new focal neurological deficit. ADMITTING IMPRESSION/DIAGNOSES: 1. Prostatism. Prostatitis. 2. Hypertension. 3. History of chronic atrial fibrillation. 4. Leukocytosis. 5. Insomnia. PLAN: Regarding postop care, the patient is getting continuous bladder irrigation. The patient's Xarelto will be resumed once the bleeding risk is minimal and acceptable by the surgeon and we will give Ambien p.r.n. for insomnia. MD MATT Connor/ANDRES /[id number]
--- NOTE | 2018-11-29 19:45 | NUR ---
Report taken from morning rn.walking rounds done.on cont.bladder irrigation.orange colored urine draining.aaox4.iv to right forearm is patent.bed alarm on.bed locked and in lowest position.phone and call light within reach.keep monitor the pt.
--- NOTE | 2018-11-29 22:17 | NUR ---
RECEIVED REPORT, RECEIVED PATIENT STABLE CONDITION. BED LOCKED AND IN LOWEST POSITION, CALL LIGHT WITHIN EASY REACH. WILL CONTINUE TO MONITOR PATIENT.
--- NOTE | 2018-11-29 22:17 | NUR ---
Report given to Margarita SÁNCHEZ.waking rounds done.stable condition.
[2018-11-30] MEDS: D5.45%NS/KCL 20MEQ 1,000 ML IV SCH (00:03)
[2018-11-30 00:19] VITALS: BP 175/75
[2018-11-30 04:00] VITALS: BP 188/84
--- NOTE | 2018-11-30 05:52 | NUR ---
called placed to dr. roman answering service for orders regarding elevated bp. awaiting call back. patient in stable condition, no distress, resting at this time. will continue to monitor patient.
[2018-11-30 05:54] LABS: BASOPHILS % 0.1 % (0.0-1.0); EOSINOPHILS # (AUTO) 0.3 (0.0-0.4); EOSINOPHILS % 2.6 % (0.0-6.0); HEMATOCRIT 41.2 % (38.2-49.6); HEMOGLOBIN 14.3 g/dL (14.0-18.0); LYMPHOCYTES % 20.1 % (18.0-39.1); MEAN CORPUSCULAR HEMOGLOBIN 32.4 pg (28-32); MEAN CORPUSCULAR HGB CONC 34.7 g/dL (31-35); MEAN CORPUSCULAR VOLUME 93.4 fL (81-99); MONOCYTES % 10.4 % (4.4-11.3); NEUTROPHILS # (AUTO) 6.6 (2.1-6.9); NEUTROPHILS % 66.3 % (38.7-80.0); PLATELET COUNT 218 x10e3/uL (140-360); RED BLOOD COUNT 4.41 x10e6/uL (4.3-5.7); RED CELL DISTRIBUTION WIDTH 13.2 % (11.7-14.4)
[2018-11-30 06:11] LABS: BLOOD UREA NITROGEN 7 mg/dL (7-26); BUN/CREATININE RATIO 7 (6-25); CALCIUM 8.4 mg/dL (8.4-10.2); CARBON DIOXIDE 24 mmol/L (22-29); CHLORIDE 101 mmol/L (98-107); CREATININE, SERUM 1.04 mg/dL (0.72-1.25); EST GLOMERULAR FILTRATION RATE > 60 ML/MIN (60-); GLUCOSE 100 mg/dL (74-118); SODIUM 135 mmol/L (136-145)
[2018-11-30 07:50] VITALS: BP 181/80
[2018-11-30] MEDS: DOCUSATE SODIUM 100 MG CAP PO SCH ×2 (09:00→09:05)
[2018-11-30] MEDS: ACETAMINOPHEN/CODEINE 300MG - 30MG TAB PO PRN (09:05)
[2018-11-30] MEDS: PHENAZOPYRIDINE HCL 100 MG TAB PO SCH (09:05)
--- NOTE | 2018-11-30 09:05 | NUR ---
BEDSIDE REPORT RECEIVED FROM NIGHT RN, PT IN STABLE CONDITION, VICTORIA TO BSD WITH CLEAR YELLOW URINE NOTED, CBI IN PROGRESS, DENIES PAIN AT THIS TIME, CALL LIGHT IN REACH WILL CONTINUE TO MONITOR
[2018-11-30 09:15] VITALS: BP 181/80
[2018-11-30] MEDS: CEFTRIAXONE SOD 1 GM/NS 50 ML 50 ML IV SCH (12:17)
[2018-11-30 12:54] VITALS: BP_SYST 136
[2018-11-30 12:56] VITALS: BP 136/77
--- NOTE | 2018-11-30 13:18 | NUR ---
EDUCATED ABOUT IMM, SIGNED, FILED IN CHART, WITH COPY LEFT WITH FAMILY AT BEDSIDE.
[2018-11-30] MEDS ORDERED: TYLENOL WITH C1 EACH PO (15:04)
[2018-11-30] MEDS ORDERED: LEVAQUIN500 MG PO (15:04)
--- NOTE | 2018-12-03 03:23 | Discharge Summary ---
HISTORY OF PRESENT ILLNESS: He is an 88-year-old male patient, who was admitted for urinary retention and difficulty urination. ADMITTING IMPRESSION/DIAGNOSES: Prostatism, coronary artery disease, atrial fibrillation, and diabetes. HOSPITAL COURSE SUMMARY: The patient was having prostate surgery was done and the patient had a continuous bladder irrigation postop and I gently added Levaquin. The patient had improved significantly and now upon stabilization, the patient will be discharged home and the patient will resume his Xarelto. MD MATT Connor/MODL /[id number]
--- NOTE | 2019-01-28 22:09 | Operative Report ---
DATE OF PROCEDURE: 11/28/2018 SURGEON: Kehinde Fisher MD PREOPERATIVE DIAGNOSES: 1. Obstructive benign prostatic hypertrophy. 2. Urinary retention. POSTOPERATIVE DIAGNOSES: 1. Obstructive benign prostatic hypertrophy. 2. Urinary retention. OPERATIONS PERFORMED: 1. Cystourethroscopy with bilateral ureteral catheterization and retrograde ureteropyelography (separate procedure performed for the urinary retention). 2. Interpretation of retrograde ureteropyelography. 3. Supervision of fluoroscopy, no radiologist present. 4. Cystourethroscopy with extensive and complicated transurethral resection of the prostate utilizing the plasma button electrode (separate staged procedure made more complicated by the patient's large prostate size). ANESTHESIA: General. COMPLICATIONS: None. CLINICAL SUMMARY: Froilan Sawyer is an 88-year-old man with long-standing BPH. He has a history of urinary retention. The patient was evaluated and found to have high-pressure low-flow voiding on urodynamic study. Options were discussed with the patient. He elected to proceed with the procedure as planned. He is aware of the risks of bleeding, infection, injury to adjacent structures, incontinence, impotence, retrograde ejaculation, need for additional procedures, and he elected to proceed. OPERATIVE PROCEDURE IN DETAIL: Informed consent was verified, Froilan Sawyer was properly identified, taken to the operating room, and placed on the cystoscopy table in supine position. Anesthesia was uneventfully begun. The patient was then carefully gently repositioned in supine position with all pressure points well padded. His genitalia were prepared and draped in usual sterile fashion. The cystoscope sheath with the visual obturator in place was atraumatically inserted into the patient's urethra, it was guided down the unremarkable distal urethra. Had some wide caliber not clinically significant scarring and some irritation at the bulbar region. We went through the normal sphincteric region, went through the prostate bed, which was significant for visually obstructing bilobar BPH with kissing lateral lobes and severe visual obstruction of the prostatic urethra. We went to the patient's bladder where panendoscopy revealed grade 3 trabeculations with cellule formation throughout the bladder. There were no suspicious mucosal lesions. There were no tumors. There were no stones. Normally positioned and configured ureteral orifices were identified. An 8-Georgian catheter was used to cannulate each ureter and retrograde ureteral pyelograms were performed. Interpretation of retrograde ureteropyelography contrast was instilled in retrograde fashion bilaterally. There were no tumors. There were no stones. There were no diverticula. Severe bilateral J-hooking was noted most likely from the very large BPH and from the recurrent urinary retention. The patient also had no evidence of hydronephrosis and unobstructed drainage was observed bilaterally fluoroscopically. The cystoscope was withdrawn. The resectoscope was placed atraumatically. The plasma button electrode was then utilized to vaporize the prostate from the bladder neck tube, but never passed the verumontanum and down to the surgical capsule. Pinpoint electrocautery was utilized to achieve hemostasis. This was an extensive procedure for repair of large prostate. Once the resection was completed, the resectoscope was withdrawn, but continuous irrigation Aleman catheter was placed. It was irrigated to and fro to ensure it worked properly. He was placed on continuous irrigation with clear efflux emerging. A belladonna and opium suppository were placed revealing a very large prostate, that was non-fluctuant without any nodules. The patient was uneventfully reversed from anesthesia and taken to recovery room in stable condition. There were no complications to the procedure. He tolerated the procedure well. Explicit postoperative instructions were given. We will plan to admit the patient and proceed with routine postoperative management. Kehinde Fisher MD [facility] /[id number] cc: Soledad Rosario MD
== END 2018-11-30 15:40 | disposition home or self-care (01) | DRG 713 ==
LOC: OR 06:58 → PACU V 11:46 → MED/SURG 14:04
PROVIDERS: ADMIT Internal Medicine; ATTEND Internal Medicine
PROC: 0V508ZZ Destruction of Prostate, Via Natural or Artificial Opening Endoscopic (ICD-10-PCS; principal; 2018-11-28 09:30)
PROC: BT141ZZ Fluoroscopy of Kidneys, Ureters and Bladder using Low Osmolar Contrast (ICD-10-PCS; 2018-11-28 09:30)
DX: N40.1 Benign prostatic hyperplasia with lower urinary tract symptoms (principal); N13.8 Other obstructive and reflux uropathy; R33.8 Other retention of urine; R39.198 Other difficulties with micturition; I25.10 Atherosclerotic heart disease of native coronary artery without angina pectoris; I48.91 Unspecified atrial fibrillation; I10 Essential (primary) hypertension; E11.9 Type 2 diabetes mellitus without complications; K21.9 Gastro-esophageal reflux disease without esophagitis; Z79.01 Long term (current) use of anticoagulants; Z91.041 Radiographic dye allergy status
CPT/HCPCS: 36415; 74420; 80048; 83735; 85025; J0290; J0696; J1100; J1580; J2001; J2270; J2405; J3010

== ENCOUNTER → 2019-01-09 | Outpatient (CLI) | payer MEDICARE ==
[~2019-01-09] MED LIST changes: +LEVAQUIN500 MG PO
--- NOTE | 2019-01-09 13:39 | Diagnostic Imaging Report ---
EXAMINATION: CHEST 2 VIEWS INDICATION: Cough COMPARISON: Multiple prior chest radiograph, most recent of 10/17/2018 FINDINGS: LINES/TUBES:None LUNGS:The lungs are well-inflated. Patchy reticular nodular opacities at the left mid to lower lung zone. PLEURA:No pleural effusion or pneumothorax. MEDIASTINUM:The cardiomediastinal silhouette appears unchanged in size and shape. Atherosclerotic calcifications of the thoracic aorta. BONES/SOFT TISSUES:No acute osseous injury. ABDOMEN:No free air under the diaphragm. IMPRESSION: Patchy reticular nodular opacities at the left mid to lower lung zone. This can be seen with atypical infection or aspiration. RECOMMENDATIONS: Follow-up chest radiograph in 6-8 weeks to assess for resolution. Signed by: Jose Red MD on 01/09/2019 1:36 PM
== END ==
LOC: RAD 12:59
PROVIDERS: ATTEND Internal Medicine
DX: R05 Cough (principal)
CPT/HCPCS: 71046

== ENCOUNTER → 2019-04-03 | Outpatient (CLI) | payer MEDICARE ==
--- NOTE | 2019-04-03 10:27 | Diagnostic Imaging Report ---
EXAMINATION: CHEST 2 VIEWS INDICATION: Pneumonia COMPARISON: Chest radiograph of 01/09/2019 FINDINGS: LINES/TUBES:None LUNGS:The lungs are well-inflated. No focal consolidation or pulmonary edema. There are bilateral predominantly peripheral increased interstitial opacities. PLEURA:No pleural effusion or pneumothorax. MEDIASTINUM:The cardiomediastinal silhouette appears unchanged in size and shape. BONES/SOFT TISSUES:No acute osseous injury. ABDOMEN:No free air under the diaphragm. IMPRESSION: No focal pneumonia or pulmonary edema. Bilateral lower lung peripheral increased reticular opacities may represent a component of chronic interstitial lung disease. Signed by: Jose Red MD on 04/03/2019 10:23 AM
== END ==
LOC: RAD 09:38
PROVIDERS: ATTEND Internal Medicine
DX: Z09 Encounter for follow-up examination after completed treatment for conditions other than malignant neoplasm (principal); J18.9 Pneumonia, unspecified organism
CPT/HCPCS: 71046